=== PATIENT | female | born 1970 | race Two or more races ===

== ENCOUNTER 2018-05-04 12:13 | Inpatient (IN) | payer OTHER ==
[~2018-05-04] VITALS: Ht 152.4 cm; Wt 46.3 kg
[2018-05-04] MEDS ORDERED: FEMARA2.5 MG (12:28)
[2018-05-04] MEDS ORDERED: EFFEXOR XR150 MG (12:29)
== END 2018-05-06 18:41 | disposition home or self-care (01) | DRG 379 ==
LOC: ER 12:13 → SEC-K 16:48 → MEDI 16:48
PROC: 30233N1 Transfusion of Nonautologous Red Blood Cells into Peripheral Vein, Percutaneous Approach (ICD-10-PCS; principal; 2018-05-04)
DX: K92.2 Gastrointestinal hemorrhage, unspecified (principal); D50.0 Iron deficiency anemia secondary to blood loss (chronic); F32.89 Other specified depressive episodes; F41.8 Other specified anxiety disorders